=== PATIENT | male | born 1985 | race Two or more races ===

== ENCOUNTER 2024-07-08 10:42 | Emergency (ER) | payer MEDICAID, OTHER ==
[~2024-07-08] VITALS: Ht 180.3 cm; Wt 114.0 kg
[2024-07-08 12:01] VITALS: BP 148/73; PULSE 83; RESP 15; TEMP 98.7; O2SAT 97
[2024-07-08] MEDS: cefTRIAXone SOD 1,000 MG VL IM ONE (12:39)
[2024-07-08] MEDS: KETOROLAC TROMETH 30 MG/ML 1ML VIAL IM ONE (12:39)
[2024-07-08] MEDS ORDERED: BACDST PO (12:44)
[2024-07-08] MEDS ORDERED: MUPI2CRE17 EX (12:44)
== END 2024-07-08 12:45 | disposition home or self-care (01) ==
LOC: ER 10:42
DX: T23.031D Burn of unspecified degree of multiple right fingers (nail), not including thumb, subsequent encounter (principal); X08.8XXD Exposure to other specified smoke, fire and flames, subsequent encounter
CPT/HCPCS: 73130; 96372; 99284; J0696; J1885